=== PATIENT | male | born 1955 | race Caucasian/White ===

== ENCOUNTER → 2024-01-24 12:59 | Outpatient (REF) | payer BC, SELFPAY ==
--- NOTE | 2024-01-24 13:06 | HM_ITS ---
* Total monitoring time 3 days. * Underlying rhythm is sinus with an average rate of 61/Min. * Rare supraventricular ectopy. * Rare ventricular ectopy. Multiple morphologies. * No significant pauses or AV blocks. * No patient markers or diary events. MTDD
== END ==
LOC: HO.CARD 12:59
PROVIDERS: PCP Internal Medicine; Visit Provider Internal Medicine
DX: R00.2 Palpitations (principal); I48.91 Unspecified atrial fibrillation
CPT/HCPCS: 93242

== ENCOUNTER → 2024-01-24 13:06 | Outpatient (BNV) | payer BC, SELFPAY | PROVIDERS: PCP Internal Medicine; Visit Provider Internal Medicine | DX: I49.3 Ventricular premature depolarization (principal) | CPT/HCPCS: 93244 ==